=== PATIENT | male | born 1965 | race Caucasian/White ===

== ENCOUNTER → 2016-04-27 | Outpatient (CLI) | payer BC, MEDICARE ==
[~2016-04-27] MED LIST: 3N1 COMMODE MC; ALPR0.25 PO; ASPI81TA3 PO; CPM MC; HYDR-3498 PO; PANT40TA3 PO; SERT50TA PO; SUMA6VIA16 SQ; TAPE200T PO; TRAM50TA2 PO; TRAZ150T65 PO; WALK1EAC23 MC
--- NOTE | 2016-04-27 09:40 | RADRPT ---
PROCEDURE: XR left knee. CLINICAL INDICATION: Knee pain. TECHNIQUE: AP weightbearing, lateral weightbearing and sunrise views are available for review. 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 There is no evidence of loosening of the prosthesis. The osseous structures are normal in mineralization, architecture and alignment No acute fracture or dislocation is seen.No osseous lesions are identified. The soft tissues are unremarkable . IMPRESSION: Unremarkable constrained total knee replacement. RPTAT: [facility] .Main Sy MD, MD Date Time Electronically viewed and signed by .Main Sy MD, on 04/27/2016 09:39 .B/
== END | disposition home or self-care (01) ==
LOC: HKI 08:45
PROVIDERS: ATTEND Orthopaedic Surgery
DX: T84.093D Other mechanical complication of internal left knee prosthesis, subsequent encounter (principal); M25.562 Pain in left knee; Z96.653 Presence of artificial knee joint, bilateral
CPT/HCPCS: 73562; G0463

== ENCOUNTER → 2016-08-21 | Outpatient (CLI) | payer BC, MEDICARE ==
--- NOTE | 2016-08-21 12:26 | RADRPT ---
PROCEDURE: XR bilateral knees. CLINICAL INDICATION: Knee pain. TECHNIQUE: AP weightbearing, lateral weightbearing and sunrise views of each knee are available fo r review. 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 There is a right total knee replacement. There i s no evidence of loosening of the prosthesis. There is no evidence of hardware failure. The osseous structures are normal in mineralization, architecture and alignment No acute fracture or dislocation is seen.No osseous lesions are identified. The soft tissues are unremarkable . IMPRESSION: Unremarkable left constrained total knee replacement. Unremarkable right total knee replacement RPTAT: HG[facility] .Main Sy MD, MD Date Time Electronically viewed and signed by .Main Sy MD, on 08/21/2016 12:26 .B/
== END | disposition home or self-care (01) ==
LOC: HKI 09:27
PROVIDERS: ATTEND Orthopaedic Surgery
DX: T84.093A Other mechanical complication of internal left knee prosthesis, initial encounter (principal); Y79.2 Prosthetic and other implants, materials and accessory orthopedic devices associated with adverse incidents; Z96.653 Presence of artificial knee joint, bilateral; M25.562 Pain in left knee; M25.561 Pain in right knee
CPT/HCPCS: 73562; G0463